=== PATIENT | male | born 1970 | race Two or more races ===

== ENCOUNTER 2019-06-08 01:35 | Inpatient (IN) | payer MEDICARE, OTHER ==
[~2019-06-08] VITALS: Ht 182.9 cm; Wt 93.4 kg
--- NOTE | 2019-06-08 02:35 | NUR ---
JAY medsurg admission notes Received infor from [facility]. Received Pt from [facility]. Pt arrived at the unit by a gurney with two EMT personnels. Pt is 48 Y O Male with a diagnose of Acute Pancreatitis by DR. Lucas. Pt is alert and orientedX4. Respiration is normal. No SOB. No nausea or vomiting. Pt denies any pain or discomfort at this time. IV sites at LAC # 20 is clean, intact, patent and flush without resistance. VS is stable. Skin assessment done. Pt skin is intact. 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 Pt is able to ambulate with a walker and assisstant. Admission ordered received from . Pt's belongings was checked by CUONG No. Oriented Pt to the room and the use of call light. Pt verbalize understanding. Safety precautions is maintained all the time. Bed at low position, brakes locked, side rails upX3, bed alarm is on and call light is within reach. Will continue to monitor.
[2019-06-08 02:50] VITALS: BP 126/62
[2019-06-08] MEDS ORDERED: MAGNESIUM HYDROXIDE 30 ML UDC PO PRN (03:00)
[2019-06-08] MEDS ORDERED: MAG HYDROX/AL HYDROX/SIMETH 30 ML UDC PO PRN (03:00)
[2019-06-08] MEDS ORDERED: ACETAMINOPHEN 325 MG TABLET PO PRN (03:00)
[2019-06-08] MEDS ORDERED: MORPHINE SULFATE INJ 2 MG/ML DISP.SYRIN IV PRN (03:00)
[2019-06-08] MEDS ORDERED: ONDANSETRON HCL/PF 4 MG/2 ML VIAL IVP PRN (03:00)
[2019-06-08 04:00] VITALS: BP_SYST 115; BP_SYST 132; BP_DIAS 79; BP_DIAS 84
[2019-06-08] MEDS: IV NS 0.9% 1,000 ML IV PRN ×2 (04:14→18:29)
--- NOTE | 2019-06-08 06:46 | NUR ---
RN medsurg closing notes Pt is alert and oriented X4. Pt is resting in bed comfortably. Awaken easily. Respiration is normal. No SOB. No nausea or vomiting. Pt denies any pain or discomfort. IV sites LAC # 20 is clean, intact, patent and infusing well NS @ 125 ml/hr. Kept Pt clean, dry and comfortable. Pt status is NPO since last night. All needs met and attended. Pt's walker at the bedside. Safety precautions is maintained all the time. Bed at low position, brakes locked, side rails upX3 and call light is within reach. Will endorse to morning nurse for ALEXSANDRA.
[2019-06-08 07:01] LABS: CALCIUM, SERUM 8.4 mg/dL (8.5-10.1); CREATININE 0.8 mg/dL (0.6-1.3); POTASSIUM 3.8 mmol/L (3.5-5.1)
[2019-06-08 07:05] LABS: BASOPHILS % (AUTO) 0.1 % (0.0-2.0); EOSINOPHILS % (AUTO) 1.4 % (0.0-6.0); HEMATOCRIT 43 % (39-51); HEMOGLOBIN 14.7 g/dL (13.5-17.5); LYMPHOCYTES # (AUTO) 1.4 /CMM (0.8-4.8); LYMPHOCYTES % (AUTO) 14.5 % (20.0-44.0); MEAN CORPUSCULAR HGB CONC 35 g/dl (31.0-36.0); MEAN CORPUSCULAR VOLUME 93 fL (80-96); MONOCYTES # (AUTO) 1.1 /CMM (0.1-1.30); MONOCYTES % (AUTO) 11.9 % (2.0-12.0); NEUTROPHILS # (AUTO) 6.8 /CMM (1.8-8.9); NEUTROPHILS % (AUTO) 72.1 % (43.0-81.0); PLATELET COUNT (AUTO) 176 /CMM (150-450); RED BLOOD CELL COUNT(AUTO) 4.59 MIL/uL (4.5-6.0); WHITE BLOOD COUNT (AUTO) 9.4 K/uL (4.3-11.0)
--- NOTE | 2019-06-08 07:20 | NUR ---
MS RN OPENING NOTES RECEIVED PT IN BED, A/O X3-4. PT TOLERATING RA, WITH NO ACUTE RESPIRATORY DISTRESS NOTED. PT DENIES ANY PAIN OR DISCOMFORT AT THE THIS TIME. ALSO, DURING MORNING ROUNDS, PT WAS ABLE TO AMBULATE WITH ASSIST OF SKY DIVER TO THE BATHROOM WITH NO DIFFICULTY. PT DENIES ANY CONCERNS OR QUESTIONS AT THIS MOMENT. CURRENTLY ON NPO. IVF NS AT 125ML/HR TO LAC G20, INTACT AND NO INFILTRATION NOTED. PT KEPT COMFORTABLE. PT'S BED IN LOWEST, LOCKED POSITION WITH SR X3. CALL LIGHT KEPT WITHIN REACH. WILL CONTINUE PLAN OF CARE.
[2019-06-08 08:00] VITALS: BP 121/73
[2019-06-08] MEDS: PANTOPRAZOLE 40 MG VIAL IV SCH (08:22)
--- NOTE | 2019-06-08 14:00 | NUR ---
MS RN NOTES MADE AWARE OF DR WEINBERG/HOSPITALIST REGARDING US OF GALLBLADDER RESULT. AND PT'S CURRENT NPO STATUS. STATED HE'LL SEE PT FIRST BEFORE ORDERING DIET. PT MADE AWARE AND MOTHER/RENETTA AT BEDSIDE MADE AWARE WELL.
[2019-06-08 16:00] VITALS: BP 111/67
--- NOTE | 2019-06-08 17:39 | NUR ---
MS RN NOTES SEEN AND EVALUATED BY MD/. PLAN FOR PT TO TOLERATE GRADUALLY INCREASED DIET BEFORE DISCHARGE TO GIVE REST TO PANCREAS. PT'S MOTHER PRESENT AT BEDSIDE AND UNDERSTOOD PLAN OF CARE. OUTPATIENT APPOINTMENTS NEEDS TO BE RESCHEDULED AT THE MOMENT.
--- NOTE | 2019-06-08 18:41 | NUR ---
MS RN CLOSING NOTES PT IN BED, A/O X3-4. PT TOLERATING RA, WITH NO ACUTE RESPIRATORY DISTRESS NOTED. PT DENIES ANY PAIN OR DISCOMFORT AT THE THIS TIME. IVF NS AT 125ML/HR TO LAC G20, INTACT AND FLUID INFUSING WELL. ALL NEEDS AND CARE ATTENDED. PT KEPT COMFORTABLE. PT'S BED IN LOWEST, LOCKED POSITION WITH SR X3. CALL LIGHT KEPT WITHIN REACH. WILL ENDORSE TO INCOMING NIGHT NURSE FOR ALEXSANDRA.
--- NOTE | 2019-06-08 19:05 | NUR ---
RN OPENING NOTES: PATIENT IN BED, AWAKE, AND VERBALLY RESPONSIVE. A/OX3-4. NO RESPIRATORY DISTRESS, TOLERATING RA. NO C/O PAIN AT THIS TIME. UPON ENDORSEMENT, PATIENT NOW ON CLEAR LIQUIDS. (L) AC IV ACCESS G20 PATENT AND INTACT, FLUSHING WELL, AND RUNNING IVF NS AT 125 MLS/HR, TOLERATING WELL. SAFETY PRECAUTIONS IMPLEMENTED. BED LOCKED AND IN LOWEST POSITION. CALL LIGHT PLACED WITHIN REACH. WILL CONT. TO MONITOR.
[2019-06-08 20:00] VITALS: BP 105/67
[2019-06-08 22:00] VITALS: BP 105/67
--- NOTE | 2019-06-09 03:45 | NUR ---
RN NOTE: PATIENT REQUESTED TO HAVE ANOTHER IV SITE BECAUSE IV PUMP KEEPS BEEPING WHEN HE BENDS HIS LEFT ARM. JAY ROSE INSERTED A NEW IV LINE ON (R) HAND G20. INTACT AND PATENT. FLUSHING WELL. WILL CONT. TO MONITOR.
[2019-06-09 04:00] VITALS: BP 116/61
[2019-06-09] MEDS: IV NS 0.9% 1,000 ML IV PRN (06:24)
--- NOTE | 2019-06-09 06:55 | NUR ---
RN CLOSING NOTES: PATIENT IN BED, AWAKE, AND VERBALLY RESPONSIVE. A/OX3-4. NO RESPIRATORY DISTRESS, TOLERATING RA. NO C/O PAIN THROUGHOUT THE SHIFT. TOLERATING CLEAR LIQUIDS AT THIS TIME. (R) HAND IV ACCESS G20 INTACT, PATENT, AND FLUSHING WELL, RUNNING IVF NS AT 125 MLS/HR, TOLERATING WELL. SAFETY PRECAUTIONS IMPLEMENTED. BED LOCKED AND IN LOWEST POSITION. CALL LIGHT PLACED WITHIN REACH. WILL ENDORSE TO AM SHIFT NURSE FOR CONTINUITY OF CARE.
[2019-06-09 07:11] LABS: CALCIUM, SERUM 8.9 mg/dL (8.5-10.1); CREATININE 0.8 mg/dL (0.6-1.3); MAGNESIUM 2.1 mg/dL (1.8-2.4); PHOSPHORUS 3.1 mg/dL (2.5-4.9); POTASSIUM 3.7 mmol/L (3.5-5.1)
[2019-06-09 07:20] LABS: BASOPHILS % (AUTO) 0.4 % (0.0-2.0); EOSINOPHILS % (AUTO) 2.8 % (0.0-6.0); HEMATOCRIT 42 % (39-51); HEMOGLOBIN 14.7 g/dL (13.5-17.5); LYMPHOCYTES # (AUTO) 1.6 /CMM (0.8-4.8); LYMPHOCYTES % (AUTO) 22.3 % (20.0-44.0); MEAN CORPUSCULAR HGB CONC 35 g/dl (31.0-36.0); MEAN CORPUSCULAR VOLUME 91 fL (80-96); MONOCYTES # (AUTO) 0.9 /CMM (0.1-1.30); MONOCYTES % (AUTO) 12.8 % (2.0-12.0); NEUTROPHILS # (AUTO) 4.5 /CMM (1.8-8.9); NEUTROPHILS % (AUTO) 61.7 % (43.0-81.0); PLATELET COUNT (AUTO) 178 /CMM (150-450); RED BLOOD CELL COUNT(AUTO) 4.58 MIL/uL (4.5-6.0); WHITE BLOOD COUNT (AUTO) 7.3 K/uL (4.3-11.0)
--- NOTE | 2019-06-09 07:40 | NUR ---
RN OPENING NOTES: PATIENT IN BED, AWAKE, AND VERBALLY RESPONSIVE. A/OX3-4. NO RESPIRATORY DISTRESS OR SOB, TOLERATING RA. NO C/O PAIN AT THIS TIME. (L) AC IV ACCESS G20 SL PATENT AND INTACT, FLUSHING WELL. IV RIGHT HAND #20 NS RUNNING @ 125 ML/HR. SAFETY PRECAUTIONS IMPLEMENTED. BED LOCKED AND IN LOWEST POSITION. CALL LIGHT PLACED WITHIN REACH. WILL CONT. TO MONITOR.
[2019-06-09 08:00] VITALS: BP 111/75
[2019-06-09] MEDS: PANTOPRAZOLE 40 MG VIAL IV SCH (08:24)
--- NOTE | 2019-06-09 15:14 | NUR ---
PATIENT DISCHARGED TO HOME ACCOMPANIED BY HER MOTHER. WOOD TANK ERECTOR TOOK THE PATIENT TO THE MAIN ENTRANCE BY WHEELCHAIR. STABLE UPON DISCHARGE. ALL NEEDS ATTENDED.
== END 2019-06-09 14:39 | disposition home or self-care (01) | DRG 439 ==
LOC: MEDSG1 02:21
DX: K85.90 Acute pancreatitis without necrosis or infection, unspecified (principal); I69.351 Hemiplegia and hemiparesis following cerebral infarction affecting right dominant side; K40.90 Unilateral inguinal hernia, without obstruction or gangrene, not specified as recurrent; N43.3 Hydrocele, unspecified; K82.8 Other specified diseases of gallbladder
CPT/HCPCS: 36415; 76705-TC; 80048-TC; 80061-TC; 83690-TC; 83735-TC; 84100-TC; 85025-TC; 87081-TC; C9113; G0378; J7030